=== PATIENT | male | born 1970 | race Hispanic/Latino ===

== ENCOUNTER 2017-10-19 14:50 | Inpatient (IN) | payer MEDICAID ==
[~2017-10-19] VITALS: Ht 165.1 cm; Wt 204.8 kg
[2017-10-19 15:05] LABS: BASOPHILS % (AUTO) 0.9 % (0.0-5.0); EOSINOPHILS % (AUTO) 0.2 % (0.0-8.0); LYMPHOCYTES % (AUTO) 10.7 % (21.0-51.0); MEAN CORPUSCULAR HEMOGLOBIN 22.5 pg (27.0-33.0); MEAN CORPUSCULAR HGB CONC 29.9 g/dL (32.0-36.0); MEAN CORPUSCULAR VOLUME 75.1 fL (79-99); MONOCYTES % (AUTO) 8.7 % (3.0-13.0); NEUTROPHILS % (AUTO) 79.5 % (40.0-77.0); NUCLEATED RED BLOOD CELLS 0.4 % (0.0-0.19); PLATELET COUNT (AUTO) 314 K/uL (130-400); RED BLOOD CELL COUNT(AUTO) 6.79 MIL/uL (4.50-6.20); RED CELL DISTRIBUTION WIDTH 18.1 % (11.0-15.5); WHITE BLOOD COUNT (AUTO) 13.6 K/uL (4.8-10.8)
[2017-10-19 15:18] LABS: INR 1.01 (0.85-1.15); PARTIAL THROMBOPLASTIN TIME 27.1 SEC (26.3-35.5); PROTHROMBIN TIME 10.6 SEC (9.6-11.6)
[2017-10-19 15:20] LABS: CARBON DIOXIDE 36 mmol/L (21-32); CHLORIDE 101 mmol/L (101-111); CREATININE 1.1 mg/dL (0.5-1.5); GLOMERULAR FILTR. RATE CALC 76 mL/min (>60); GLUCOSE,RANDOM 174 mg/dL (70-105); POTASSIUM 4.5 mmol/L (3.5-5.1); SODIUM SERUM 141 mmol/L (136-145); UREA NITROGEN, BLOOD 24 mg/dL (7-18)
[2017-10-19 15:21] LABS: ABG BASE EXCESS -0.4 mmol/L (-2.0-3.0); ABG HCO3 28.9 mmol/L (21.0-28.0); ABG OXYGEN SATURATION 94.3 % (95.0-99.0); ABG PCO2 69 mmHg (35-48)
[2017-10-19 15:36] LABS: ALANINE AMINOTRANSFERASE 36 U/L (12-78); ALBUMIN 3.7 g/dL (3.5-5.0); ASPARTATE AMINOTRANSFERASE 22 U/L (10-37); BILIRUBIN,TOTAL 0.5 mg/dL (0.2-1.0); CREATINE KINASE MB 1.5 ng/mL (0.5-3.6); CREATINE KINASE, TOTAL 71 U/L (21-232); MYOGLOBIN 42 ng/mL (10-92); TROPONIN I < 0.04 ng/mL (0.00-0.06)
[2017-10-19 19:15] VITALS: BP 137/79
[2017-10-19] MEDS ORDERED: FUROSEMIDE 10 MG/ML 2ML VIAL IVP SCH (21:00)
[2017-10-19] MEDS ORDERED: GLUCAGON 1MG KIT 1 MG ML IM PRN (21:30)
[2017-10-19] MEDS ORDERED: LIDOCAINE HCL-MPF 1% 2ML VIAL IJ PRN (21:30)
[2017-10-19] MEDS ORDERED: DEXTROSE 50%-WATER 50 ML DISP.SYRIN IV PRN (21:30)
[2017-10-19] MEDS: INSULIN R PO SSI SQ SCH (21:34)
[2017-10-19 21:47] LABS: CREATINE KINASE MB 1.3 ng/mL (0.5-3.6); CREATINE KINASE, TOTAL 68 U/L (21-232); MYOGLOBIN 41 ng/mL (10-92); TROPONIN I < 0.04 ng/mL (0.00-0.06)
[2017-10-19] MEDS: METOPROLOL TARTRATE 25 MG TAB PO SCH (22:34)
[2017-10-19 23:26] VITALS: BP 139/85
[2017-10-20] VITALS (27 sets, daily range): BP systolic 107–168; BP diastolic 55–102
[2017-10-20 04:25] LABS: ABG BASE EXCESS 2.1 mmol/L (-2.0-3.0); ABG HCO3 33.5 mmol/L (21.0-28.0); ABG OXYGEN SATURATION 88.2 % (95.0-99.0); ABG PCO2 89 mmHg (35-48)
[2017-10-20 05:21] LABS: BASOPHILS % (AUTO) 0.5 % (0.0-5.0); EOSINOPHILS % (AUTO) 0.5 % (0.0-8.0); HEMATOCRIT 48.2 % (42-54); LYMPHOCYTES % (AUTO) 10.4 % (21.0-51.0); MEAN CORPUSCULAR HGB CONC 29.9 g/dL (32.0-36.0); MEAN CORPUSCULAR VOLUME 76.9 fL (79-99); MONOCYTES % (AUTO) 11.5 % (3.0-13.0); NEUTROPHILS % (AUTO) 77.1 % (40.0-77.0); NUCLEATED RED BLOOD CELLS 0.2 % (0.0-0.19); PLATELET COUNT (AUTO) 265 K/uL (130-400); RED BLOOD CELL COUNT(AUTO) 6.27 MIL/uL (4.50-6.20); RED CELL DISTRIBUTION WIDTH 18.5 % (11.0-15.5); WHITE BLOOD COUNT (AUTO) 11.3 K/uL (4.8-10.8)
[2017-10-20 05:34] LABS: HEMOGLOBIN A1C 6.9 % (4.0-6.0)
[2017-10-20 05:45] LABS: CARBON DIOXIDE 39 mmol/L (21-32); CHLORIDE 104 mmol/L (101-111); CREATINE KINASE MB 1.3 ng/mL (0.5-3.6); CREATINE KINASE, TOTAL 52 U/L (21-232); CREATININE 1.2 mg/dL (0.5-1.5); GLOMERULAR FILTR. RATE CALC 69 mL/min (>60); GLUCOSE,RANDOM 123 mg/dL (70-105); MYOGLOBIN 43 ng/mL (10-92); POTASSIUM 4.8 mmol/L (3.5-5.1); SODIUM SERUM 143 mmol/L (136-145); TROPONIN I < 0.04 ng/mL (0.00-0.06); UREA NITROGEN, BLOOD 26 mg/dL (7-18)
[2017-10-20] MEDS ORDERED: IPRATROPIUM/ALBUTEROL SULFATE 3 ML SOLUTION IH SCH (06:00)
[2017-10-20] MEDS ORDERED: GUAIFENESIN-DM 200/20 MG 10 ML PO PRN (08:00)
[2017-10-20] MEDS ORDERED: ONDANSETRON HCL MDV 20ML 2 MG/ML VIAL IV PRN (08:00)
[2017-10-20] MEDS ORDERED: NITROGLYCERIN 0.4 MG SL TAB SL PRN (08:00)
[2017-10-20] MEDS ORDERED: MAG HYDROX/AL HYDROX/SIMETH ES 30 ML SUSP UDCUP PO PRN (08:00)
[2017-10-20] MEDS ORDERED: ACETAMINOPHEN 325 MG TAB PO PRN (08:00)
[2017-10-20] MEDS ORDERED: LACTULOSE 20 GM/30 ML UDCUP PO PRN (08:00)
[2017-10-20] MEDS: ASPIRIN 325 MG TABLET PO SCH (09:00)
[2017-10-20] MEDS: METOPROLOL TARTRATE 25 MG TAB PO SCH ×2 (09:00→21:06)
[2017-10-20] MEDS: FAMOTIDINE 20MG TAB 20 MG TAB PO SCH ×2 (09:00→21:06)
[2017-10-20 09:32] LABS: ABG BASE EXCESS 5.4 mmol/L (-2.0-3.0); ABG HCO3 38.1 mmol/L (21.0-28.0); ABG OXYGEN SATURATION 97.8 % (95.0-99.0); ABG PCO2 105 mmHg (35-48)
[2017-10-20] MEDS ORDERED: MIDAZOLAM HCL 1 MG/ML 2ML VIAL ONE (10:40)
[2017-10-20] MEDS: MIDAZOLAM 100MG-0.9% NS 100ML 100 ML IV PRN ×2 (11:11→20:51)
[2017-10-20] MEDS: FENTANYL 2500MCG+NS 250ML 250 ML IV PRN ×2 (11:11→22:51)
[2017-10-20] MEDS: IPRATROPIUM/ALBUTEROL SULFATE 3 ML SOLUTION IH SCH ×3 (11:30→23:44)
[2017-10-20] MEDS: INSULIN R PO SSI SQ SCH ×3 (11:30→21:00)
[2017-10-20 12:48] LABS: ABG BASE EXCESS 7.8 mmol/L (-2.0-3.0); ABG HCO3 35.6 mmol/L (21.0-28.0); ABG OXYGEN SATURATION 88.2 % (95.0-99.0); ABG PCO2 63 mmHg (35-48)
[2017-10-20] MEDS: LEVOFLOXACIN 500 MG/D5W 100 ML 100 ML IV SCH (13:30)
[2017-10-20] MEDS: FUROSEMIDE 10 MG/ML 2ML VIAL IVP SCH ×2 (13:31→21:06)
[2017-10-20] MEDS: HYDRALAZINE HCL 20 MG/ML VIAL IV PRN (14:30)
[2017-10-21] VITALS (23 sets, daily range): BP systolic 130–164; BP diastolic 75–103
[2017-10-21 04:32] LABS: ALBUMIN 2.7 g/dL (3.5-5.0); BILIRUBIN,TOTAL 1.1 mg/dL (0.2-1.0); POTASSIUM 4.4 mmol/L (3.5-5.1); TOTAL PROTEIN, SERUM 6.5 g/dL (6.0-8.3)
[2017-10-21 04:43] LABS: HEMATOCRIT 46.2 % (42-54); MEAN CORPUSCULAR HEMOGLOBIN 22.9 pg (27.0-33.0); MEAN CORPUSCULAR VOLUME 73.7 fL (79-99); PLATELET COUNT (AUTO) 229 K/uL (130-400); RED BLOOD CELL COUNT(AUTO) 6.27 MIL/uL (4.50-6.20); RED CELL DISTRIBUTION WIDTH 18.1 % (11.0-15.5)
[2017-10-21 04:49] LABS: B-TYPE NATRIURETIC PEPTIDE 20 pg/mL (0-100)
[2017-10-21] MEDS: INSULIN R PO SSI SQ SCH ×3 (05:21→18:38)
[2017-10-21] MEDS: FUROSEMIDE 10 MG/ML 2ML VIAL IVP SCH ×3 (05:48→21:26)
[2017-10-21] MEDS: IPRATROPIUM/ALBUTEROL SULFATE 3 ML SOLUTION IH SCH ×3 (06:48→18:24)
[2017-10-21 07:45] LABS: ABG BASE EXCESS 9.4 mmol/L (-2.0-3.0); ABG HCO3 33.4 mmol/L (21.0-28.0); ABG OXYGEN SATURATION 87.3 % (95.0-99.0); ABG PCO2 42 mmHg (35-48)
[2017-10-21 08:28] LABS: INR 1.05 (0.85-1.15); PARTIAL THROMBOPLASTIN TIME 27.4 SEC (26.3-35.5)
[2017-10-21] MEDS: METOPROLOL TARTRATE 25 MG TAB PO SCH ×2 (09:29→21:26)
[2017-10-21] MEDS: ASPIRIN 325 MG TABLET PO SCH (09:29)
[2017-10-21] MEDS: FAMOTIDINE 20MG TAB 20 MG TAB PO SCH ×2 (09:29→21:26)
[2017-10-21] MEDS: MIDAZOLAM 100MG-0.9% NS 100ML 100 ML IV PRN ×2 (09:32→18:33)
[2017-10-21] MEDS: FENTANYL 2500MCG+NS 250ML 250 ML IV PRN ×2 (09:53→20:13)
[2017-10-21] MEDS: LEVOFLOXACIN 500 MG/D5W 100 ML 100 ML IV SCH (14:22)
[2017-10-21] MEDS: ENOXAPARIN SODIUM 30 MG/0.3 ML SQ SCH (21:27)
[2017-10-21 22:22] LABS: APPEARANCE,URINE Clear (CLEAR); BILIRUBIN,URINE Negative (NEGATIVE); COLOR,URINE Yellow (YELLOW); GLUCOSE, URINE (UA) Negative (NEGATIVE); KETONES,URINE Trace mg/dL (NEGATIVE); LEUKOCYTE ESTERASE ,URINE Trace (NEGATIVE); NITRATE,URINE Negative (NEGATIVE); OCCULT BLOOD,URINE Small (NEGATIVE); PH,URINE 8.5 (5.0-8.0); PROTEIN,URINE Negative (NEGATIVE)
[2017-10-21 22:32] LABS: BACTERIA,URINE None Seen /HPF (None Seen); MUCUS,URINE Rare LPF (None Seen); SQUAMOUS EPITHELIAL CELL,UR Few /HPF (0-2); WBC,URINE 0-1 /HPF (0-1)
[2017-10-22] VITALS (24 sets, daily range): BP systolic 117–170; BP diastolic 61–109
[2017-10-22] MEDS: ACETAMINOPHEN 325 MG TAB PO PRN (00:06)
[2017-10-22] MEDS: MIDAZOLAM 100MG-0.9% NS 100ML 100 ML IV PRN ×4 (00:16→23:35)
[2017-10-22] MEDS: IPRATROPIUM/ALBUTEROL SULFATE 3 ML SOLUTION IH SCH ×4 (00:38→17:57)
[2017-10-22 04:29] LABS: HEMATOCRIT 46.1 % (42-54); MEAN CORPUSCULAR HEMOGLOBIN 22.7 pg (27.0-33.0); MEAN CORPUSCULAR HGB CONC 31.1 g/dL (32.0-36.0); MEAN CORPUSCULAR VOLUME 73.2 fL (79-99); NUCLEATED RED BLOOD CELLS 0.1 % (0.0-0.19); PLATELET COUNT (AUTO) 252 K/uL (130-400); RED CELL DISTRIBUTION WIDTH 18.7 % (11.0-15.5); WHITE BLOOD COUNT (AUTO) 11.1 K/uL (4.8-10.8)
[2017-10-22 04:38] LABS: B-TYPE NATRIURETIC PEPTIDE 19 pg/mL (0-100)
[2017-10-22 04:52] LABS: ALBUMIN 2.6 g/dL (3.5-5.0); BILIRUBIN,TOTAL 1.6 mg/dL (0.2-1.0); CREATININE 1.3 mg/dL (0.5-1.5); POTASSIUM 3.3 mmol/L (3.5-5.1); TOTAL PROTEIN, SERUM 6.5 g/dL (6.0-8.3)
[2017-10-22] MEDS: INSULIN HUMULIN R 100 UNIT/ML 3ML SQ SCH ×5 (06:00→23:53)
[2017-10-22] MEDS: FUROSEMIDE 10 MG/ML 2ML VIAL IVP SCH ×3 (06:17→22:06)
[2017-10-22] MEDS: POTASSIUM CHLORIDE 10% ELIXIR 20 MEQ/15 ML UDCUP PO PRN ×3 (06:22→20:47)
[2017-10-22 10:11] LABS: ABG BASE EXCESS 3.9 mmol/L (-2.0-3.0); ABG HCO3 34.2 mmol/L (21.0-28.0); ABG OXYGEN SATURATION 91.3 % (95.0-99.0); ABG PCO2 80 mmHg (35-48)
[2017-10-22] MEDS: ASPIRIN 325 MG TABLET PO SCH (10:17)
[2017-10-22] MEDS: FAMOTIDINE 20MG TAB 20 MG TAB PO SCH ×2 (10:17→20:28)
[2017-10-22] MEDS: METOPROLOL TARTRATE 25 MG TAB PO SCH ×2 (10:17→20:28)
[2017-10-22] MEDS: ENOXAPARIN SODIUM 30 MG/0.3 ML SQ SCH ×2 (10:18→20:28)
[2017-10-22] MEDS ORDERED: MAGNESIUM 2GM PREMIX 50ML 50 ML IV SCH (12:00)
[2017-10-22] MEDS: FENTANYL 2500MCG+NS 250ML 250 ML IV PRN ×2 (12:30→23:35)
[2017-10-22] MEDS ORDERED: ACETAMINOPHEN ELIXIR 325 MG/10.15ML UDCUP ONE (12:34)
[2017-10-22] MEDS: POTASSIUM CHLORIDE 20MEQ/100ML 100 ML IV PRN (12:38)
[2017-10-22] MEDS: METHYLPREDNISOLONE SOD SUCC 40MG/ML 1ML IVP SCH ×2 (12:39→20:28)
[2017-10-22] MEDS ORDERED: ACETAMINOPHEN ELIXIR 650 MG/20.3 ML UDCUP PEG PRN (12:45)
[2017-10-22] MEDS: LEVOFLOXACIN 500 MG/D5W 100 ML 100 ML IV SCH (12:46)
[2017-10-22 13:39] LABS: ABG HCO3 32.3 mmol/L (21.0-28.0); ABG PCO2 48 mmHg (35-48)
[2017-10-22 13:41] LABS: APPEARANCE,URINE Clear (CLEAR); BILIRUBIN,URINE Moderate (NEGATIVE); COLOR,URINE Orange (YELLOW); GLUCOSE, URINE (UA) Negative (NEGATIVE); KETONES,URINE 15 mg/dL (NEGATIVE); LEUKOCYTE ESTERASE ,URINE Small (NEGATIVE); NITRATE,URINE Positive (NEGATIVE); OCCULT BLOOD,URINE Small (NEGATIVE); PROTEIN,URINE POS 2+ (NEGATIVE)
[2017-10-22 14:15] LABS: BACTERIA,URINE Rare /HPF (None Seen); SQUAMOUS EPITHELIAL CELL,UR Rare /HPF (0-2); WBC,URINE 0-1 /HPF (0-1)
[2017-10-23] VITALS (25 sets, daily range): BP systolic 110–144; BP diastolic 52–86
[2017-10-23] MEDS: IPRATROPIUM/ALBUTEROL SULFATE 3 ML SOLUTION IH SCH ×5 (00:04→23:45)
[2017-10-23] MEDS: METHYLPREDNISOLONE SOD SUCC 40MG/ML 1ML IVP SCH ×3 (04:09→20:09)
[2017-10-23 04:16] LABS: ABG BASE EXCESS 5.7 mmol/L (-2.0-3.0); ABG HCO3 31.4 mmol/L (21.0-28.0); ABG OXYGEN SATURATION 93.3 % (95.0-99.0); ABG PCO2 50 mmHg (35-48)
[2017-10-23 04:30] LABS: HEMATOCRIT 47.6 % (42-54); MEAN CORPUSCULAR HEMOGLOBIN 22.7 pg (27.0-33.0); MEAN CORPUSCULAR HGB CONC 30.8 g/dL (32.0-36.0); MEAN CORPUSCULAR VOLUME 73.8 fL (79-99); PLATELET COUNT (AUTO) 235 K/uL (130-400); RED BLOOD CELL COUNT(AUTO) 6.45 MIL/uL (4.50-6.20); RED CELL DISTRIBUTION WIDTH 18.5 % (11.0-15.5); WHITE BLOOD COUNT (AUTO) 11.3 K/uL (4.8-10.8)
[2017-10-23 04:44] LABS: B-TYPE NATRIURETIC PEPTIDE 28 pg/mL (0-100)
[2017-10-23 04:45] LABS: ALBUMIN 2.5 g/dL (3.5-5.0); BILIRUBIN,TOTAL 0.9 mg/dL (0.2-1.0); CREATININE 1.1 mg/dL (0.5-1.5); MAGNESIUM 1.9 mg/dL (1.80-2.40); PHOSPHORUS 3.5 mg/dL (2.5-4.9); POTASSIUM 3.9 mmol/L (3.5-5.1); TOTAL PROTEIN, SERUM 7.1 g/dL (6.0-8.3)
[2017-10-23] MEDS: FUROSEMIDE 10 MG/ML 2ML VIAL IVP SCH ×3 (05:55→21:08)
[2017-10-23] MEDS: INSULIN HUMULIN R 100 UNIT/ML 3ML SQ SCH ×4 (05:56→23:34)
[2017-10-23] MEDS: MIDAZOLAM 100MG-0.9% NS 100ML 100 ML IV PRN ×3 (06:19→20:10)
[2017-10-23 09:56] LABS: ABG BASE EXCESS 4.3 mmol/L (-2.0-3.0); ABG HCO3 34.2 mmol/L (21.0-28.0); ABG OXYGEN SATURATION 94.3 % (95.0-99.0); ABG PCO2 77 mmHg (35-48)
[2017-10-23] MEDS: ENOXAPARIN SODIUM 30 MG/0.3 ML SQ SCH ×2 (10:12→20:10)
[2017-10-23] MEDS: ASPIRIN 325 MG TABLET PO SCH (10:12)
[2017-10-23] MEDS: FAMOTIDINE 20MG TAB 20 MG TAB PO SCH ×2 (10:12→20:09)
[2017-10-23] MEDS: METOPROLOL TARTRATE 25 MG TAB PO SCH ×2 (10:12→20:09)
[2017-10-23] MEDS: POTASSIUM CHLORIDE 20MEQ/100ML 100 ML IV PRN (10:13)
[2017-10-23] MEDS ORDERED: MAGNESIUM 2GM PREMIX 50ML 50 ML IV SCH (10:45)
[2017-10-23] MEDS: LEVOFLOXACIN 500 MG/D5W 100 ML 100 ML IV SCH (13:22)
[2017-10-23] MEDS: FENTANYL 2500MCG+NS 250ML 250 ML IV PRN (16:59)
[2017-10-24] VITALS (24 sets, daily range): BP systolic 113–151; BP diastolic 60–95
[2017-10-24 04:08] LABS: ABG OXYGEN SATURATION 93.6 % (95.0-99.0); ABG PCO2 52 mmHg (35-48)
[2017-10-24] MEDS: METHYLPREDNISOLONE SOD SUCC 40MG/ML 1ML IVP SCH ×2 (04:09→12:29)
[2017-10-24 04:49] LABS: HEMATOCRIT 47.6 % (42-54); MEAN CORPUSCULAR HEMOGLOBIN 22.2 pg (27.0-33.0); MEAN CORPUSCULAR HGB CONC 30.3 g/dL (32.0-36.0); MEAN CORPUSCULAR VOLUME 73.4 fL (79-99); PLATELET COUNT (AUTO) 256 K/uL (130-400); RED BLOOD CELL COUNT(AUTO) 6.49 MIL/uL (4.50-6.20); WHITE BLOOD COUNT (AUTO) 12.7 K/uL (4.8-10.8)
[2017-10-24] MEDS: FUROSEMIDE 10 MG/ML 2ML VIAL IVP SCH ×3 (05:16→21:11)
[2017-10-24 05:20] LABS: CREATININE 1.1 mg/dL (0.5-1.5); MAGNESIUM 2.2 mg/dL (1.80-2.40); POTASSIUM 3.9 mmol/L (3.5-5.1)
[2017-10-24] MEDS: INSULIN HUMULIN R 100 UNIT/ML 3ML SQ SCH ×3 (05:56→18:35)
[2017-10-24] MEDS: IPRATROPIUM/ALBUTEROL SULFATE 3 ML SOLUTION IH SCH ×4 (06:27→23:34)
[2017-10-24] MEDS: LEVOFLOXACIN 500 MG/D5W 100 ML 100 ML IV SCH (10:36)
[2017-10-24] MEDS: ASPIRIN 325 MG TABLET PO SCH (10:36)
[2017-10-24] MEDS: METOPROLOL TARTRATE 25 MG TAB PO SCH ×2 (10:36→20:13)
[2017-10-24] MEDS: ENOXAPARIN SODIUM 30 MG/0.3 ML SQ SCH ×2 (10:37→20:14)
[2017-10-24] MEDS: FAMOTIDINE 20MG TAB 20 MG TAB PO SCH ×2 (10:37→20:13)
[2017-10-25] VITALS (26 sets, daily range): BP systolic 123–166; BP diastolic 67–99
[2017-10-25 03:58] LABS: HEMATOCRIT 49.2 % (42-54); MEAN CORPUSCULAR HEMOGLOBIN 22.7 pg (27.0-33.0); MEAN CORPUSCULAR HGB CONC 30.4 g/dL (32.0-36.0); MEAN CORPUSCULAR VOLUME 74.9 fL (79-99); PLATELET COUNT (AUTO) 300 K/uL (130-400); RED BLOOD CELL COUNT(AUTO) 6.57 MIL/uL (4.50-6.20); RED CELL DISTRIBUTION WIDTH 18.3 % (11.0-15.5)
[2017-10-25 04:07] LABS: CREATININE 0.9 mg/dL (0.5-1.5); POTASSIUM 4.1 mmol/L (3.5-5.1)
[2017-10-25] MEDS: FUROSEMIDE 10 MG/ML 2ML VIAL IVP SCH (05:00)
[2017-10-25 05:31] LABS: ABG BASE EXCESS 11.3 mmol/L (-2.0-3.0); ABG HCO3 39.9 mmol/L (21.0-28.0); ABG OXYGEN SATURATION 91.3 % (95.0-99.0); ABG PCO2 69 mmHg (35-48)
[2017-10-25] MEDS: INSULIN HUMULIN R 100 UNIT/ML 3ML SQ SCH ×5 (05:57→21:57)
[2017-10-25] MEDS: IPRATROPIUM/ALBUTEROL SULFATE 3 ML SOLUTION IH SCH ×4 (06:52→23:35)
[2017-10-25] MEDS ORDERED: [UNRECOGNIZED DRUG - CODE] PO (09:04)
[2017-10-25] MEDS ORDERED: ASPI-555 PO (09:04)
[2017-10-25] MEDS ORDERED: METF10004 PO (09:04)
[2017-10-25] MEDS ORDERED: IBUP-2077 PO (09:04)
[2017-10-25] MEDS ORDERED: BUME2TAB18 PO (09:04)
[2017-10-25] MEDS ORDERED: ROSU20TA30 PO (09:04)
[2017-10-25] MEDS ORDERED: LINA5TAB PO (09:04)
[2017-10-25] MEDS ORDERED: LOSA50TA37 PO (09:04)
[2017-10-25] MEDS: METOPROLOL TARTRATE 25 MG TAB PO SCH ×2 (09:07→20:22)
[2017-10-25] MEDS: ASPIRIN 325 MG TABLET PO SCH (09:07)
[2017-10-25] MEDS: FUROSEMIDE 20 MG TABLET PO SCH ×2 (09:07→17:06)
[2017-10-25] MEDS: ENOXAPARIN SODIUM 30 MG/0.3 ML SQ SCH ×2 (09:07→20:22)
[2017-10-25] MEDS: FAMOTIDINE 20MG TAB 20 MG TAB PO SCH ×2 (09:07→20:22)
[2017-10-25] MEDS: PREDNISONE 20 MG TABLET PO SCH (09:07)
[2017-10-25] MEDS: LEVOFLOXACIN 500 MG/D5W 100 ML 100 ML IV SCH (09:08)
[2017-10-26] VITALS (15 sets, daily range): BP systolic 131–181; BP diastolic 82–101
[2017-10-26 03:32] LABS: HEMATOCRIT 51.3 % (42-54); MEAN CORPUSCULAR HEMOGLOBIN 22.3 pg (27.0-33.0); MEAN CORPUSCULAR HGB CONC 30.1 g/dL (32.0-36.0); MEAN CORPUSCULAR VOLUME 74.1 fL (79-99); PLATELET COUNT (AUTO) 250 K/uL (130-400); RED BLOOD CELL COUNT(AUTO) 6.92 MIL/uL (4.50-6.20); RED CELL DISTRIBUTION WIDTH 18.6 % (11.0-15.5); WHITE BLOOD COUNT (AUTO) 9.5 K/uL (4.8-10.8)
[2017-10-26 03:43] LABS: CREATININE 1.1 mg/dL (0.5-1.5); POTASSIUM 3.8 mmol/L (3.5-5.1)
[2017-10-26 04:56] LABS: ABG BASE EXCESS 9.3 mmol/L (-2.0-3.0); ABG HCO3 37.2 mmol/L (21.0-28.0); ABG OXYGEN SATURATION 89.6 % (95.0-99.0); ABG PCO2 65 mmHg (35-48)
[2017-10-26] MEDS: INSULIN HUMULIN R 100 UNIT/ML 3ML SQ SCH ×4 (05:17→21:29)
[2017-10-26] MEDS: IPRATROPIUM/ALBUTEROL SULFATE 3 ML SOLUTION IH SCH ×4 (06:34→23:52)
[2017-10-26] MEDS: LEVOFLOXACIN 500 MG/D5W 100 ML 100 ML IV SCH (10:09)
[2017-10-26] MEDS: ASPIRIN 325 MG TABLET PO SCH (10:09)
[2017-10-26] MEDS: FAMOTIDINE 20MG TAB 20 MG TAB PO SCH ×2 (10:10→21:09)
[2017-10-26] MEDS: PREDNISONE 20 MG TABLET PO SCH (10:10)
[2017-10-26] MEDS: METOPROLOL TARTRATE 25 MG TAB PO SCH ×2 (10:10→21:09)
[2017-10-26] MEDS: FUROSEMIDE 20 MG TABLET PO SCH ×2 (10:10→16:56)
[2017-10-26] MEDS: ENOXAPARIN SODIUM 30 MG/0.3 ML SQ SCH ×2 (10:12→21:10)
[2017-10-26] MEDS: HYDRALAZINE HCL 20 MG/ML VIAL IV PRN (10:43)
[2017-10-26] MEDS: POTASSIUM CHLORIDE 20 MEQ ERTAB PO PRN (10:44)
[2017-10-27 03:26] VITALS: BP 146/95
[2017-10-27] MEDS: INSULIN HUMULIN R 100 UNIT/ML 3ML SQ SCH ×4 (05:55→21:53)
[2017-10-27] MEDS: IPRATROPIUM/ALBUTEROL SULFATE 3 ML SOLUTION IH SCH ×4 (06:00→23:16)
[2017-10-27 07:00] VITALS: BP 138/95
[2017-10-27] MEDS: PREDNISONE 20 MG TABLET PO SCH (08:44)
[2017-10-27] MEDS: FAMOTIDINE 20MG TAB 20 MG TAB PO SCH ×2 (08:44→20:22)
[2017-10-27] MEDS: METOPROLOL TARTRATE 25 MG TAB PO SCH (08:44)
[2017-10-27] MEDS: ASPIRIN 325 MG TABLET PO SCH (08:44)
[2017-10-27] MEDS: LEVOFLOXACIN 500 MG/D5W 100 ML 100 ML IV SCH (08:44)
[2017-10-27] MEDS: FUROSEMIDE 20 MG TABLET PO SCH ×2 (08:44→16:43)
[2017-10-27] MEDS: POTASSIUM CHLORIDE 20 MEQ ERTAB PO PRN ×2 (08:45→12:29)
[2017-10-27] MEDS: ENOXAPARIN SODIUM 30 MG/0.3 ML SQ SCH ×2 (08:46→20:23)
[2017-10-27] MEDS: ACETAMINOPHEN 325 MG TAB PO PRN (09:40)
[2017-10-27 11:00] VITALS: BP 151/98
[2017-10-27 16:00] VITALS: BP 148/98
[2017-10-27 18:58] VITALS: BP 131/78
[2017-10-27] MEDS: METOPROLOL TARTRATE 50 MG TAB PO SCH (20:22)
[2017-10-27 23:09] VITALS: BP 189/95
[2017-10-27] MEDS: HYDRALAZINE HCL 20 MG/ML VIAL IV PRN (23:18)
[2017-10-28 01:06] VITALS: BP 142/75
[2017-10-28 03:32] VITALS: BP 129/81
[2017-10-28] MEDS: INSULIN HUMULIN R 100 UNIT/ML 3ML SQ SCH (05:52)
[2017-10-28] MEDS: IPRATROPIUM/ALBUTEROL SULFATE 3 ML SOLUTION IH SCH ×2 (06:11→11:12)
[2017-10-28 07:00] VITALS: BP 133/88
[2017-10-28] MEDS: FUROSEMIDE 20 MG TABLET PO SCH (08:02)
[2017-10-28] MEDS: ASPIRIN 325 MG TABLET PO SCH (08:02)
[2017-10-28] MEDS: LEVOFLOXACIN 500 MG/D5W 100 ML 100 ML IV SCH (08:02)
[2017-10-28] MEDS: METOPROLOL TARTRATE 50 MG TAB PO SCH (08:02)
[2017-10-28] MEDS: FAMOTIDINE 20MG TAB 20 MG TAB PO SCH (08:02)
[2017-10-28] MEDS: ENOXAPARIN SODIUM 30 MG/0.3 ML SQ SCH (08:03)
[2017-10-28 11:00] VITALS: BP 143/77
== END 2017-10-28 11:45 | disposition home or self-care (01) | DRG 133 ==
LOC: EDH 14:50 → EDHIP 14:51 → OBSVTOIN 14:51 → 3BH 18:59 → 2CH 10-20 08:25 → 2AH 10-26 12:39
PROVIDERS: ADMIT Internal Medicine; ATTEND Internal Medicine
PROC: 5A09357 Assistance with Respiratory Ventilation, Less than 24 Consecutive Hours, Continuous Positive Airway Pressure (ICD-10-PCS; principal; 2017-10-20)
PROC: 5A1945Z Respiratory Ventilation, 24-96 Consecutive Hours (ICD-10-PCS; 2017-10-20)
PROC: 5A09357 Assistance with Respiratory Ventilation, Less than 24 Consecutive Hours, Continuous Positive Airway Pressure (ICD-10-PCS; 2017-10-20)
PROC: 5A09357 Assistance with Respiratory Ventilation, Less than 24 Consecutive Hours, Continuous Positive Airway Pressure (ICD-10-PCS; 2017-10-20)
PROC: 5A09357 Assistance with Respiratory Ventilation, Less than 24 Consecutive Hours, Continuous Positive Airway Pressure (ICD-10-PCS; 2017-10-20)
PROC: 5A09357 Assistance with Respiratory Ventilation, Less than 24 Consecutive Hours, Continuous Positive Airway Pressure (ICD-10-PCS; 2017-10-20)
PROC: 0BH17EZ Insertion of Endotracheal Airway into Trachea, Via Natural or Artificial Opening (ICD-10-PCS; 2017-10-20)
PROC: 02HV33Z Insertion of Infusion Device into Superior Vena Cava, Percutaneous Approach (ICD-10-PCS; 2017-10-21)
DX: J96.22 Acute and chronic respiratory failure with hypercapnia (principal); I26.09 Other pulmonary embolism with acute cor pulmonale; I50.33 Acute on chronic diastolic (congestive) heart failure; L03.115 Cellulitis of right lower limb; E66.2 Morbid (severe) obesity with alveolar hypoventilation; E87.2 Acidosis; J96.21 Acute and chronic respiratory failure with hypoxia; L03.116 Cellulitis of left lower limb; G47.33 Obstructive sleep apnea (adult) (pediatric); I11.0 Hypertensive heart disease with heart failure; F17.200 Nicotine dependence, unspecified, uncomplicated; E78.5 Hyperlipidemia, unspecified; E11.9 Type 2 diabetes mellitus without complications; Z68.45 Body mass index [BMI] 70 or greater, adult; R31.9 Hematuria, unspecified; J44.9 Chronic obstructive pulmonary disease, unspecified
CPT/HCPCS: 31500; 36415; 36600; 71045; 80048; 80053; 81001; 82270; 82330; 82435; 82550; 82553; 82803; 82947; 82948; 83036; 83605; 83735; 83874; 83880; 84100; 84132; 84295; 84484; 85018; 85025; 85027; 85378; 85610; 85730; 87040; 87071; 87088; 87205; 93005; 93306; 93970; 94002; 94003; 94640; 94660; 94664; 94760; 97039; A4357; C1894; J0360; J1650; J1815; J1940; J1956; J2250; J2920; J3010; J3475; J3480

== ENCOUNTER 2019-03-16 13:45 | Emergency (ER) | payer MEDICAID ==
[~2019-03-16 13:45] MED LIST: ASPI-555 PO; BUDE10.2 IH; BUME2TAB5 PO; DILT120T PO; ESOM40CA54 PO; LEVO500T2 PO; LINA5TAB PO; LOSA1TAB37 PO; METF-446 PO; PRED20TA3 PO; ROSU20TA31 PO; SIMV-43 PO; TERB250T51 PO; TRAM50TA4 PO
[2019-03-16] MEDS ORDERED: CYCLOBENZAPRINE HCL 10 MG TABLET ONE (14:22)
[2019-03-16] MEDS ORDERED: KETOROLAC TROMETHAMINE 60 MG/2 ML VIAL ONE (14:22)
== END 2019-03-16 15:06 | disposition home or self-care (01) ==
LOC: EDH 13:45
DX: S73.102A Unspecified sprain of left hip, initial encounter (principal); R07.89 Other chest pain; F14.10 Cocaine abuse, uncomplicated; I11.0 Hypertensive heart disease with heart failure; I50.9 Heart failure, unspecified; E78.5 Hyperlipidemia, unspecified; E11.9 Type 2 diabetes mellitus without complications; Z87.891 Personal history of nicotine dependence; X58.XXXA Exposure to other specified factors, initial encounter; Y93.89 Activity, other specified; Y92.89 Other specified places as the place of occurrence of the external cause; Y99.8 Other external cause status
CPT/HCPCS: 73502; 96372; 99284; J1885

== ENCOUNTER 2021-08-08 19:35 | Emergency (ER) | payer MEDICAID, OTHER ==
[~2021-08-08] VITALS: Ht 165.1 cm; Wt 201.8 kg
[~2021-08-08 19:35] MED LIST changes: -ASPI-555 PO; +ASPI-556 PO; -TERB250T51 PO; +TERB250T89 PO
[2021-08-08] MEDS ORDERED: VALACYCLOVIR HCL 500 MG TABLET PO ONE (20:00)
[2021-08-08] MEDS ORDERED: PREDNISONE 20 MG TABLET PO ONE (20:00)
[2021-08-08] MEDS ORDERED: VALA100031 PO (20:04)
[2021-08-08] MEDS ORDERED: PRED20TA3 PO (20:04)
[2021-08-08 20:07] VITALS: BP 180/100
[2021-08-08] MEDS ORDERED: ACYCLOVIR 200 MG CAPSULE ONE (20:22)
[2021-08-08] MEDS ORDERED: ACYCLOVIR 200 MG CAPSULE PO ONE (20:30)
== END 2021-08-08 20:50 | disposition home or self-care (01) ==
LOC: EDH 19:35
DX: G51.0 Bell's palsy (principal); Z20.822 Contact with and (suspected) exposure to COVID-19; E11.9 Type 2 diabetes mellitus without complications; E78.00 Pure hypercholesterolemia, unspecified; I10 Essential (primary) hypertension; Z79.51 Long term (current) use of inhaled steroids; Z79.52 Long term (current) use of systemic steroids; Z79.82 Long term (current) use of aspirin; Z79.84 Long term (current) use of oral hypoglycemic drugs; Z79.899 Other long term (current) drug therapy
CPT/HCPCS: 87635; 99283; C9803

== ENCOUNTER 2021-08-13 15:24 | Emergency (ER) | payer MEDICAID ==
[~2021-08-13] VITALS: Ht 165.1 cm; Wt 199.6 kg
[~2021-08-13 15:24] MED LIST changes: +VALA100031 PO
[2021-08-13 15:59] LABS: BASOPHILS % (AUTO) 0.3 % (0.0-5.0); EOSINOPHILS % (AUTO) 0.1 % (0.0-8.0); HEMATOCRIT 56.7 % (42-54); MEAN CORPUSCULAR HEMOGLOBIN 26.4 pg (27.0-33.0); MEAN CORPUSCULAR HGB CONC 32.3 g/dL (32.0-36.0); MEAN CORPUSCULAR VOLUME 81.8 fL (79-99); MONOCYTES % (AUTO) 4.7 % (3.0-13.0); NEUTROPHILS % (AUTO) 84.3 % (40.0-77.0); PLATELET COUNT (AUTO) 324 K/uL (130-400); RED BLOOD CELL COUNT(AUTO) 6.93 MIL/uL (4.50-6.20); RED CELL DISTRIBUTION WIDTH 14.1 % (11.0-15.5); WHITE BLOOD COUNT (AUTO) 16.4 K/uL (4.8-10.8)
[2021-08-13 16:08] LABS: CREATININE 1.3 mg/dL (0.5-1.5); POTASSIUM 4.1 mmol/L (3.5-5.1)
[2021-08-13 16:13] LABS: ALBUMIN 4.1 g/dL (3.5-5.0); BILIRUBIN,TOTAL 0.9 mg/dL (0.2-1.0); TOTAL PROTEIN, SERUM 8.7 g/dL (6.0-8.3)
[2021-08-13 17:20] VITALS: BP 162/96
[2021-08-13 17:39] LABS: APPEARANCE,URINE CLEAR (CLEAR); BILIRUBIN,URINE NEGATIVE (NEGATIVE); COLOR,URINE YELLOW (YELLOW); GLUCOSE, URINE (UA) NEGATIVE (NEGATIVE); KETONES,URINE NEGATIVE (NEGATIVE); LEUKOCYTE ESTERASE ,URINE NEGATIVE (NEGATIVE); NITRATE,URINE NEGATIVE (NEGATIVE); OCCULT BLOOD,URINE NEGATIVE (NEGATIVE); PROTEIN,URINE 30 mg/dL (NEGATIVE); UROBILINOGEN,URINE 0.2 mg/dL (0.2-1.0)
[2021-08-13 17:44] LABS: AMPHET/METH SCREEN,URINE NEGATIVE (NEGATIVE); BARBITURATE SCREEN, URINE NEGATIVE (NEGATIVE); BENZODIAZEPINES SCREEN,URINE NEGATIVE (NEGATIVE); CANNABINOID SCREEN,URINE NEGATIVE (NEGATIVE); COCAINE SCREEN,URINE NEGATIVE (NEGATIVE); OPIATE SCREEN,URINE NEGATIVE (NEGATIVE); PHENCYCLIDINE SCREEN,URINE NEGATIVE (NEGATIVE)
[2021-08-13 17:57] LABS: BACTERIA,URINE Few /HPF (None Seen); RBC,URINE 0-1 /HPF (0-1); SQUAMOUS EPITHELIAL CELL,UR Few /HPF (0-2); WBC,URINE 0-1 /HPF (0-1)
[2021-08-13] MEDS ORDERED: CLON0.1T PO (18:01)
== END 2021-08-13 18:06 | disposition home or self-care (01) ==
LOC: EDH 15:24
DX: G51.0 Bell's palsy (principal); E11.9 Type 2 diabetes mellitus without complications; E78.00 Pure hypercholesterolemia, unspecified; I10 Essential (primary) hypertension; Z79.51 Long term (current) use of inhaled steroids; Z79.52 Long term (current) use of systemic steroids; Z79.82 Long term (current) use of aspirin; Z79.84 Long term (current) use of oral hypoglycemic drugs; Z79.899 Other long term (current) drug therapy
CPT/HCPCS: 36415; 70450; 80053; 80305; 81001; 85025